=== PATIENT | male | born 1955 | race Caucasian/White ===

== ENCOUNTER → 2024-03-25 | Day surgery (SDC) | payer OTHER ==
[2024-03-23 15:10] LABS: BASOPHILS # (AUTO) 0.1 (0.0-0.1); BASOPHILS % 0.6 % (0.0-1.0); EOSINOPHILS # (AUTO) 0.2 (0.0-0.4); EOSINOPHILS % 2.8 % (0.0-6.0); HEMATOCRIT 37.8 % (38.2-49.6); HEMOGLOBIN 12.4 g/dL (14.0-18.0); LYMPHOCYTES # (AUTO) 1.8 (1.0-3.2); LYMPHOCYTES % 22.1 % (18.0-39.1); MEAN CORPUSCULAR HEMOGLOBIN 30.8 pg (28-32); MEAN CORPUSCULAR HGB CONC 32.8 g/dL (31-35); MONOCYTES # (AUTO) 0.7 (0.2-0.8); MONOCYTES % 8.4 % (4.4-11.3); NEUTROPHILS # (AUTO) 5.5 (2.1-6.9); NEUTROPHILS % 65.7 % (38.7-80.0); PLATELET COUNT 270 x10e3/uL (140-360); RED BLOOD COUNT 4.02 x10e6/uL (4.3-5.7); RED CELL DISTRIBUTION WIDTH 13.1 % (11.7-14.4); WHITE BLOOD COUNT 8.32 x10e3/uL (4.8-10.8)
[~2024-03-25] MED LIST: FUROSEMIDE40 MG PO; LABETALOL HCL100 MG PO; LOSARTAN POTAS100 MG PO; METFORMIN HCL500 MG PO; MINOXIDIL2.5 MG PO; NIFEDIPINE ER30 M1 PO; SPIRONOLACTONE25 MG PO; WELCHOL625 MG PO
[2024-03-25] MEDS: LACTATED RINGER'S 1,000 ML ONE (10:01)
[2024-03-25 10:30] VITALS: TEMP 97.3
[2024-03-25 10:50] VITALS: BP 153/76; PULSE 58; RESP 18; O2SAT 99
== END | disposition home or self-care (01) ==
LOC: OR 08:18
PROVIDERS: ATTEND Internal Medicine Gastroenterology
DX: Z12.11 Encounter for screening for malignant neoplasm of colon (principal); D12.3 Benign neoplasm of transverse colon; D12.4 Benign neoplasm of descending colon; K64.1 Second degree hemorrhoids; G47.33 Obstructive sleep apnea (adult) (pediatric); E11.9 Type 2 diabetes mellitus without complications; I10 Essential (primary) hypertension; E78.5 Hyperlipidemia, unspecified; I45.10 Unspecified right bundle-branch block; I44.7 Left bundle-branch block, unspecified; I44.0 Atrioventricular block, first degree; Z01.810 Encounter for preprocedural cardiovascular examination; Z01.812 Encounter for preprocedural laboratory examination; Z79.84 Long term (current) use of oral hypoglycemic drugs; Z79.899 Other long term (current) drug therapy; Z68.38 Body mass index [BMI] 38.0-38.9, adult
CPT/HCPCS: 36415 ×2; 45384; 45385; 82948; 85025; 93005; J7121

== ENCOUNTER 2024-06-23 18:16 | Inpatient (IN) | payer OTHER, MEDICARE ==
[~2024-06-23] VITALS: Ht 195.6 cm; Wt 136.2 kg
[2024-06-23 18:46] VITALS: BP 164/74; PULSE 79; RESP 17; TEMP 97.9; O2SAT 94
[2024-06-23 19:05] VITALS: BP 146/65; PULSE 76; RESP 18; TEMP 99.5; O2SAT 92
[2024-06-23 20:10] VITALS: PULSE 86; RESP 20; O2SAT 93
[2024-06-23 20:36] VITALS: BP 146/65; PULSE 76; RESP 18; TEMP 103
[2024-06-23] MEDS ORDERED: INFLUENZA VIRUS VAC SPLIT INJ 0.5 ML SYR IM SCH (20:39)
[2024-06-23] MEDS ORDERED: DEXTROSE 50% SYRINGE 50 ML IV PRN ×3 (20:45→22:30)
[2024-06-23] MEDS: ACETAMINOPHEN 325 MG TAB PO PRN (21:06)
[2024-06-23] MEDS: LOSARTAN POTASSIUM 100 MG TAB PO SCH (22:46)
[2024-06-23] MEDS: NIFEDIPINE CR 30 MG TAB PO SCH (22:48)
[2024-06-23 23:14] VITALS: BP 176/68; PULSE 83; RESP 18; TEMP 101.8; O2SAT 92
[2024-06-23 23:35] VITALS: BP 146/65; PULSE 76; RESP 18; TEMP 103; O2SAT 93
[2024-06-24] VITALS (27 sets, daily range): BP systolic 116–176; BP diastolic 6–94; PULSE 59–107; RESP 16–35; TEMP 97.7–103.2; O2SAT 88–98
[2024-06-24] MEDS: LABETALOL HCL 100 MG TAB PO SCH (00:11)
[2024-06-24 05:31] LABS: BILIRUBIN,URINE NEGATIVE (NEGATIVE); CLARITY,URINE CLEAR (CLEAR); COLOR,URINE YELLOW (YELLOW); GLUCOSE, URINE NEGATIVE (NEGATIVE); KETONES,URINE TRACE (NEGATIVE); LEUKOCYTE ESTERASE ,URINE TRACE (NEGATIVE); NITRITE,URINE NEGATIVE (NEGATIVE); PH,URINE 6 (5 - 7); PROTEIN,URINE DIPSTICK 2+ (NEGATIVE)
[2024-06-24 06:23] LABS: BACTERIA,URINE MODERATE /HPF; EPITHELIAL CELLS,URINE FEW /LPF; WBC,URINE (MAN) >50 /HPF (0-5)
[2024-06-24 06:40] LABS: BASOPHILS % 0.3 % (0.0-1.0); EOSINOPHILS % 0.1 % (0.0-6.0); HEMATOCRIT 32.6 % (38.2-49.6); HEMOGLOBIN 11.2 g/dL (14.0-18.0); LYMPHOCYTES % 9.6 % (18.0-39.1); MEAN CORPUSCULAR HGB CONC 34.4 g/dL (31-35); MEAN CORPUSCULAR VOLUME 90.3 fL (81-99); MONOCYTES # (AUTO) 0.8 (0.2-0.8); MONOCYTES % 8.5 % (4.4-11.3); NEUTROPHILS % 80.6 % (38.7-80.0); PLATELET COUNT 200 x10e3/uL (140-360); RED BLOOD COUNT 3.61 x10e6/uL (4.3-5.7); RED CELL DISTRIBUTION WIDTH 12.5 % (11.7-14.4); WHITE BLOOD COUNT 9.87 x10e3/uL (4.8-10.8)
[2024-06-24 07:15] LABS: ANION GAP 15.7 mmol/L (8-16); CALCIUM 8.4 mg/dL (8.4-10.2); CREATININE, SERUM 0.82 mg/dL (0.72-1.25); POTASSIUM 3.7 mmol/L (3.5-5.1)
[2024-06-24 07:24] LABS: TROPONIN I 0.893 ng/mL (0-0.300)
[2024-06-24] MEDS: INSULIN REGULAR, HUMAN 100 UNIT/1 ML SQ SCH (07:30)
[2024-06-24] MEDS: LOSARTAN POTASSIUM 100 MG TAB ONE (07:49)
[2024-06-24] MEDS: ASPIRIN 81 MG CHEW TAB PO ONE (07:49)
[2024-06-24] MEDS: ACETAMINOPHEN 325 MG TAB PO PRN (08:15)
[2024-06-24] MEDS: ALBUTEROL/IPRATROPIUM 3 ML NEB NEB PRN (08:22)
[2024-06-24] MEDS ORDERED: MINOXIDIL 2.5 MG TAB PO SCH ×2 (09:00→21:00)
[2024-06-24] MEDS: ACETAMINOPHEN 325 MG TAB ONE (10:52)
[2024-06-24] MEDS: COLESEVELAM HCL 625 MG TAB PO SCH (11:01)
[2024-06-24] MEDS: MINOXIDIL 2.5 MG TAB PO SCH ×2 (11:02→20:56)
[2024-06-24] MEDS: SPIRONOLACTONE 25 MG TAB PO SCH (11:04)
[2024-06-24] MEDS: FUROSEMIDE 40 MG TAB PO SCH (11:07)
[2024-06-24 12:59] LABS: ABG HCO3 20 mmol/L (22-26); ABG PCO2 24 mmHg (35-45); ABG PH 7.53 (7.35-7.45); ABG PO2 57 mmHg (80-105); ABG TCO2 20
[2024-06-24] MEDS: FUROSEMIDE INJ 10 MG/ML 4 ML VIAL IV ONE ×2 (15:22→16:03)
[2024-06-24] MEDS: DEXMEDETOMIDINE 400MCG/NS100ML 100 ML IV PRN (18:13)
[2024-06-24] MEDS: ACETAMINOPHEN 1000 MG/100 ML IV ONE (18:13)
[2024-06-25] VITALS (36 sets, daily range): BP systolic 136–159; BP diastolic 65–142; PULSE 56–145; RESP 13–24; TEMP 98.8–100.4; O2SAT 93–100
[2024-06-25 08:14] LABS: BASOPHILS % 0.5 % (0.0-1.0); HEMATOCRIT 34.2 % (38.2-49.6); HEMOGLOBIN 11.9 g/dL (14.0-18.0); LYMPHOCYTES # (AUTO) 1.1 (1.0-3.2); LYMPHOCYTES % 12.6 % (18.0-39.1); MEAN CORPUSCULAR HEMOGLOBIN 31.5 pg (28-32); MEAN CORPUSCULAR HGB CONC 34.8 g/dL (31-35); MEAN CORPUSCULAR VOLUME 90.5 fL (81-99); MONOCYTES # (AUTO) 1.4 (0.2-0.8); MONOCYTES % 16.1 % (4.4-11.3); NEUTROPHILS # (AUTO) 5.9 (2.1-6.9); NEUTROPHILS % 69.6 % (38.7-80.0); PLATELET COUNT 206 x10e3/uL (140-360); RED BLOOD COUNT 3.78 x10e6/uL (4.3-5.7); RED CELL DISTRIBUTION WIDTH 12.4 % (11.7-14.4); WHITE BLOOD COUNT 8.49 x10e3/uL (4.8-10.8)
[2024-06-25 08:27] LABS: ALBUMIN 3.3 g/dL (3.5-5.0); ALBUMIN/GLOBULIN RATIO 0.9 (0.8-2.0); ANION GAP 16.7 mmol/L (8-16); BILIRUBIN,TOTAL 0.9 mg/dL (0.2-1.2); CALCIUM 8.4 mg/dL (8.4-10.2); CREATININE, SERUM 0.95 mg/dL (0.72-1.25); POTASSIUM 3.7 mmol/L (3.5-5.1); TOTAL PROTEIN 6.8 g/dL (6.5-8.1)
[2024-06-25 08:44] LABS: TROPONIN I 0.704 ng/mL (0-0.300)
[2024-06-25] MEDS: Vancomycin IV 1 GM in SODIUM CHLORIDE 0.9% 250ML 250 ML IV ONE (08:44)
[2024-06-25] MEDS: POTASSIUM CHLORIDE 10MEQ/100ML 300 ML IV ONE (10:01)
[2024-06-25] MEDS: FUROSEMIDE INJ 10 MG/ML 4 ML VIAL IV ONE (10:01)
[2024-06-26] VITALS (44 sets, daily range): BP systolic 109–185; BP diastolic 54–97; PULSE 52–100; RESP 10–25; TEMP 98–99.1; O2SAT 86–100
[2024-06-26 06:34] LABS: BASOPHILS % 0.4 % (0.0-1.0); EOSINOPHILS # (AUTO) 0.1 (0.0-0.4); EOSINOPHILS % 0.7 % (0.0-6.0); HEMATOCRIT 32.7 % (38.2-49.6); HEMOGLOBIN 11.2 g/dL (14.0-18.0); LYMPHOCYTES # (AUTO) 1.6 (1.0-3.2); LYMPHOCYTES % 17.7 % (18.0-39.1); MEAN CORPUSCULAR HEMOGLOBIN 31.2 pg (28-32); MEAN CORPUSCULAR HGB CONC 34.3 g/dL (31-35); MEAN CORPUSCULAR VOLUME 91.1 fL (81-99); MONOCYTES # (AUTO) 1.4 (0.2-0.8); MONOCYTES % 15.9 % (4.4-11.3); NEUTROPHILS # (AUTO) 5.6 (2.1-6.9); NEUTROPHILS % 62.4 % (38.7-80.0); PLATELET COUNT 235 x10e3/uL (140-360); RED BLOOD COUNT 3.59 x10e6/uL (4.3-5.7); RED CELL DISTRIBUTION WIDTH 12.3 % (11.7-14.4); WHITE BLOOD COUNT 8.97 x10e3/uL (4.8-10.8)
[2024-06-26 07:02] LABS: ALBUMIN/GLOBULIN RATIO 0.9 (0.8-2.0); ANION GAP 13.7 mmol/L (8-16); BILIRUBIN,TOTAL 0.8 mg/dL (0.2-1.2); CALCIUM 8.4 mg/dL (8.4-10.2); CREATININE, SERUM 0.83 mg/dL (0.72-1.25); POTASSIUM 3.7 mmol/L (3.5-5.1); TOTAL PROTEIN 6.3 g/dL (6.5-8.1)
[2024-06-26] MEDS: FUROSEMIDE INJ 10 MG/ML 4 ML VIAL IV ONE (08:23)
[2024-06-26] MEDS: APIXABAN 5 MG TABLET PO SCH (08:27)
[2024-06-26] MEDS: FUROSEMIDE 40 MG TAB PO SCH (17:21)
[2024-06-26 17:46] LABS: TROPONIN I 0.391 ng/mL (0-0.300)
[2024-06-26] MEDS: FAMOTIDINE 20 MG/2 ML VIAL IV STA (17:55)
[2024-06-26] MEDS: OXYBUTYNIN CHLORIDE 5 MG TAB PO PRN (21:46)
[2024-06-26] MEDS: HYDRALAZINE HCL 20 MG/ML VIAL IV PRN (21:47)
[2024-06-26] MEDS ORDERED: MELATONIN 3 MG TAB PO PRN (22:00)
[2024-06-26] MEDS: TRAZODONE HCL 50 MG TAB PO PRN (22:04)
[2024-06-27] VITALS (37 sets, daily range): BP systolic 137–168; BP diastolic 47–84; PULSE 59–78; RESP 9–29; TEMP 98.1–98.8; O2SAT 89–99
[2024-06-27 06:38] LABS: BASOPHILS # (AUTO) 0.1 (0.0-0.1); BASOPHILS % 0.6 % (0.0-1.0); EOSINOPHILS # (AUTO) 0.1 (0.0-0.4); EOSINOPHILS % 1.1 % (0.0-6.0); HEMATOCRIT 32.3 % (38.2-49.6); LYMPHOCYTES # (AUTO) 2.1 (1.0-3.2); LYMPHOCYTES % 20.1 % (18.0-39.1); MEAN CORPUSCULAR HEMOGLOBIN 30.6 pg (28-32); MEAN CORPUSCULAR HGB CONC 34.1 g/dL (31-35); MONOCYTES # (AUTO) 1.3 (0.2-0.8); MONOCYTES % 11.7 % (4.4-11.3); NEUTROPHILS # (AUTO) 6.7 (2.1-6.9); NEUTROPHILS % 62.8 % (38.7-80.0); PLATELET COUNT 283 x10e3/uL (140-360); RED BLOOD COUNT 3.59 x10e6/uL (4.3-5.7); RED CELL DISTRIBUTION WIDTH 12.6 % (11.7-14.4); WHITE BLOOD COUNT 10.67 x10e3/uL (4.8-10.8)
[2024-06-27 07:03] LABS: ANION GAP 15.4 mmol/L (8-16); BILIRUBIN,TOTAL 0.7 mg/dL (0.2-1.2); CALCIUM 8.3 mg/dL (8.4-10.2); CREATININE, SERUM 0.78 mg/dL (0.72-1.25); TOTAL PROTEIN 6.1 g/dL (6.5-8.1)
[2024-06-27 07:12] LABS: POTASSIUM 3.4 mmol/L (3.5-5.1)
[2024-06-27] MEDS: POTASSIUM CHLORIDE 20MEQ/100ML 200 ML IV ONE (09:40)
[2024-06-27] MEDS: FAMOTIDINE 20 MG TAB PO SCH (09:42)
[2024-06-27] MEDS: CEFDINIR 300 MG CAP PO SCH (18:02)
[2024-06-28] VITALS (12 sets, daily range): BP systolic 127–166; BP diastolic 48–77; PULSE 56–72; RESP 0–23; TEMP 98–98.7; O2SAT 93–96
[2024-06-28 07:30] LABS: BASOPHILS # (AUTO) 0.1 (0.0-0.1); BASOPHILS % 0.5 % (0.0-1.0); EOSINOPHILS # (AUTO) 0.1 (0.0-0.4); EOSINOPHILS % 1.1 % (0.0-6.0); HEMATOCRIT 32.8 % (38.2-49.6); HEMOGLOBIN 11.1 g/dL (14.0-18.0); LYMPHOCYTES # (AUTO) 2.1 (1.0-3.2); LYMPHOCYTES % 18.8 % (18.0-39.1); MEAN CORPUSCULAR HEMOGLOBIN 31.2 pg (28-32); MEAN CORPUSCULAR HGB CONC 33.8 g/dL (31-35); MEAN CORPUSCULAR VOLUME 92.1 fL (81-99); MONOCYTES % 9.1 % (4.4-11.3); NEUTROPHILS # (AUTO) 7.5 (2.1-6.9); NEUTROPHILS % 66.1 % (38.7-80.0); PLATELET COUNT 294 x10e3/uL (140-360); RED BLOOD COUNT 3.56 x10e6/uL (4.3-5.7); RED CELL DISTRIBUTION WIDTH 12.6 % (11.7-14.4); WHITE BLOOD COUNT 11.36 x10e3/uL (4.8-10.8)
[2024-06-28 07:59] LABS: ALBUMIN 3.3 g/dL (3.5-5.0); ALBUMIN/GLOBULIN RATIO 1.1 (0.8-2.0); ANION GAP 15.8 mmol/L (8-16); BILIRUBIN,TOTAL 0.7 mg/dL (0.2-1.2); CALCIUM 8.7 mg/dL (8.4-10.2); CREATININE, SERUM 0.74 mg/dL (0.72-1.25); POTASSIUM 3.8 mmol/L (3.5-5.1); TOTAL PROTEIN 6.2 g/dL (6.5-8.1)
[2024-06-28] MEDS: LOSARTAN POTASSIUM 100 MG TAB PO SCH (08:23)
[2024-06-28 11:49] LABS: BASOPHILS % (MANUAL) 1 % (0-1.5); EOSINOPHILS % (MANUAL) 3 % (0-7); LYMPHOCYTES % (MANUAL) 19 % (19-48); MONOCYTES % (MANUAL) 8 % (3.4-9.0); NEUTROPHILS % (MANUAL) 69 % (40-74)
[2024-06-28 11:50] LABS: PLATELET ESTIMATE ADEQUATE; PLATELET MORPHOLOGY COMMENT NORMAL; RBC MORPHOLOGY COMMENT NORMAL
[2024-06-28] MEDS ORDERED: CEFUROXIME250 MG PO (14:03)
[2024-06-28] MEDS ORDERED: ELIQUIS5 MG PO (14:03)
[2024-06-28] MEDS ORDERED: MUPIROCIN 2% OINT 22 GM TUBE TOP SCH (17:00)
[2024-06-30 07:48] LABS: ABG HCO3 20 mmol/L (22-26); ABG PCO2 24 mmHg (35-45); ABG PH 7.53 (7.35-7.45); ABG PO2 57 mmHg (80-105); ABG TCO2 20
== END 2024-06-28 14:30 | disposition home or self-care (01) | DRG 871 ==
LOC: MED/SURG3 18:16 → ICU 06-24 15:04
PROVIDERS: ADMIT Internal Medicine; ATTEND Internal Medicine
PROC: 4A133R1 Monitoring of Arterial Saturation, Peripheral, Percutaneous Approach (ICD-10-PCS; principal; 2024-06-24)
PROC: 3E0333Z Introduction of Anti-inflammatory into Peripheral Vein, Percutaneous Approach (ICD-10-PCS; 2024-06-24)
PROC: 02HV33Z Insertion of Infusion Device into Superior Vena Cava, Percutaneous Approach (ICD-10-PCS; 2024-06-24)
PROC: 0T9B70Z Drainage of Bladder with Drainage Device, Via Natural or Artificial Opening (ICD-10-PCS; 2024-06-24)
PROC: 5A09357 Assistance with Respiratory Ventilation, Less than 24 Consecutive Hours, Continuous Positive Airway Pressure (ICD-10-PCS; 2024-06-24)
PROC: 5A0945A Assistance with Respiratory Ventilation, 24-96 Consecutive Hours, High Flow/Velocity Cannula (ICD-10-PCS; 2024-06-24)
PROC: 5A0935A Assistance with Respiratory Ventilation, Less than 24 Consecutive Hours, High Flow/Velocity Cannula (ICD-10-PCS; 2024-06-26)
DX: A41.9 Sepsis, unspecified organism (principal); I21.A1 Myocardial infarction type 2; I50.33 Acute on chronic diastolic (congestive) heart failure; J96.21 Acute and chronic respiratory failure with hypoxia; J18.9 Pneumonia, unspecified organism; N12 Tubulo-interstitial nephritis, not specified as acute or chronic; I48.92 Unspecified atrial flutter; I11.0 Hypertensive heart disease with heart failure; Z99.81 Dependence on supplemental oxygen; D64.9 Anemia, unspecified; E11.9 Type 2 diabetes mellitus without complications; G47.33 Obstructive sleep apnea (adult) (pediatric); I48.0 Paroxysmal atrial fibrillation; N30.90 Cystitis, unspecified without hematuria; K76.0 Fatty (change of) liver, not elsewhere classified; N40.0 Benign prostatic hyperplasia without lower urinary tract symptoms; E66.9 Obesity, unspecified; Z88.8 Allergy status to other drugs, medicaments and biological substances; Z88.1 Allergy status to other antibiotic agents; Z68.35 Body mass index [BMI] 35.0-35.9, adult
CPT/HCPCS: 36415; 36569; 36600; 71045; 76770; 80048; 80053; 81001; 82550; 82805; 82948; 83605; 83880; 84484; 85025; 87040; 87086; 93005; 93306; 93970; 94640; 94799; 96372; 99252; J0360; J0696; J1940; J2543; J3480; J7050

== ENCOUNTER 2024-10-02 09:07 | Emergency (ER) | payer OTHER, MEDICARE ==
[~2024-10-02] VITALS: Ht 195.6 cm; Wt 127.5 kg
[2024-10-02 09:07] VITALS: PULSE 66; RESP 18; TEMP 98.1
[~2024-10-02 09:07] MED LIST changes: +CEFUROXIME250 MG PO; +ELIQUIS5 MG PO
[2024-10-02] MEDS ORDERED: HYDRALAZINE HCL50 MG PO (09:47)
[2024-10-02] MEDS ORDERED: ATORVASTATIN CA40 MG PO (09:47)
[2024-10-02] MEDS ORDERED: NIFEDIAC CC60 MG PO (09:47)
[2024-10-02 10:24] VITALS: BP 131/70; PULSE 88; RESP 17; TEMP 98.7; O2SAT 96
== END 2024-10-02 10:20 | disposition home or self-care (01) ==
LOC: ER 09:18
DX: I48.91 Unspecified atrial fibrillation (principal); I10 Essential (primary) hypertension; E11.9 Type 2 diabetes mellitus without complications; I50.9 Heart failure, unspecified; D64.9 Anemia, unspecified; G47.30 Sleep apnea, unspecified; R94.31 Abnormal electrocardiogram [ECG] [EKG]
CPT/HCPCS: 93005; 99283

== ENCOUNTER → 2025-01-02 | Outpatient (REF) | payer MEDICARE, OTHER ==
[~2025-01-02] MED LIST changes: +ATORVASTATIN CA40 MG PO; +HYDRALAZINE HCL50 MG PO; +NIFEDIAC CC60 MG PO
== END ==
LOC: RAD 14:44
PROVIDERS: ATTEND Internal Medicine Critical Care Medicine
DX: R06.00 Dyspnea, unspecified (principal)
CPT/HCPCS: 71046